=== PATIENT | male | born 1985 | race Caucasian/White ===

== ENCOUNTER → 2016-11-10 | Outpatient (CLI) | payer OTHER | LOC: M OUTALCOH 08:22 | PROVIDERS: ATTEND Psychiatry & Neurology Psychiatry | DX: F10.20 Alcohol dependence, uncomplicated (principal) ==

== ENCOUNTER → 2016-11-29 | Outpatient (RCR) | payer OTHER | END | disposition home or self-care (01) | LOC: M OUTALCOH 11-16 15:53 | PROVIDERS: ATTEND Psychiatry & Neurology Psychiatry | DX: F10.20 Alcohol dependence, uncomplicated (principal) ==

== ENCOUNTER → 2016-12-27 | Outpatient (RCR) | payer OTHER | LOC: M OUTALCOH 12-01 16:00 | PROVIDERS: ATTEND Psychiatry & Neurology Psychiatry | DX: F10.20 Alcohol dependence, uncomplicated (principal) ==

== ENCOUNTER 2017-01-26 16:00 | Outpatient (RCR) | payer OTHER | END 2017-01-27 | LOC: M OUTALCOH 16:00 | PROVIDERS: ATTEND Psychiatry & Neurology Psychiatry | DX: F10.20 Alcohol dependence, uncomplicated (principal) ==

== ENCOUNTER 2017-02-24 16:00 | Outpatient (RCR) | payer OTHER | END 2017-02-26 | LOC: M OUTALCOH 16:00 | PROVIDERS: ATTEND Psychiatry & Neurology Psychiatry | DX: F10.20 Alcohol dependence, uncomplicated (principal) ==

== ENCOUNTER 2017-03-13 16:00 | Outpatient (RCR) | payer OTHER | END 2017-03-29 | LOC: M OUTALCOH 16:00 | PROVIDERS: ATTEND Psychiatry & Neurology Psychiatry | DX: F11.20 Opioid dependence, uncomplicated (principal); F13.20 Sedative, hypnotic or anxiolytic dependence, uncomplicated; F17.201 Nicotine dependence, unspecified, in remission ==

== ENCOUNTER → 2017-12-20 | Outpatient (REF) | payer OTHER | LOC: M SMT 17:37 | DX: Z30.09 Encounter for other general counseling and advice on contraception (principal); Z30.2 Encounter for sterilization ==

== ENCOUNTER → 2019-06-14 | Outpatient (CLI) | payer BC ==
--- NOTE | 2019-06-14 17:24 | REP ---
CERVICAL SPINE COMPLETE: 06/14/2019. Clinical history: Neck pain. No recent trauma. Findings: Seven views for complete cervical spine series show normal lordosis maintained. Flexion and extension show slight decreased flexion range of motion but no instability. The C1-2 relationships are stable on all views. The disc space and vertebral body heights are intact. No prevertebral swelling. The foramina are adequate bilaterally. There is no torticollis. AP view shows pedicles, spinous and transverse processes intact. Open-mouth view shows dens and lateral masses aligning normally. Upper thoracic region and visualized ribs intact. Impression: 1. Very slight decreased range of motion that could reflect a small amount of muscle spasm but there is no instability, visible bony degenerative changes, malalignment, foraminal encroachment, compression deformity or other acute finding Electronically Signed by Jermaine Pedersen MD 06/14/2019 05:15 P
== END ==
LOC: M ADAMS 16:39
PROVIDERS: ATTEND Family Medicine
DX: M54.2 Cervicalgia (principal)

== ENCOUNTER 2020-06-12 19:24 | Emergency (ER) | payer BC ==
[2020-07-27 13:13] LABS: BASO # 0.1 10^3/uL (0.0-0.2); BASO % 1.1 % (0.0-1.0); EOS # 0.2 10^3/uL (0.0-0.5); HEMATOCRIT 41.1 % (42.0-52.0); HEMOGLOBIN 13.7 g/dl (13.5-17.5); LYMPH # 1.6 10^3/uL (1.5-5.0); LYMPH % 30.9 % (24.0-44.0); MEAN CORPUSCULAR HEMOGLOBIN 31.7 pg (27.0-33.0); MEAN CORPUSCULAR HGB CONC 33.3 g/dl (32.0-36.5); MEAN CORPUSCULAR VOLUME 95.1 fl (80.0-96.0); MONO # 0.5 10^3/uL (0.0-0.8); MONO % 9.6 % (0.0-5.0); NEUTROPHILS # 2.9 10^3/uL (1.5-8.5); NEUTROPHILS % 54.2 % (36.0-66.0); PLATELET COUNT, AUTOMATED 196 10^3/uL (150-450); RED BLOOD COUNT 4.32 10^6/uL (4.30-6.10); WHITE BLOOD COUNT 5.3 10^3/uL (4.0-10.0)
[2020-07-27 13:15] LABS: ERYTHROCYTE SEDIMENTATION RATE 3 mm/hr (0-15)
== END 2020-06-12 21:48 | disposition home or self-care (01) ==
LOC: M ED 19:24
DX: H57.12 Ocular pain, left eye (principal); X50.0XXA Overexertion from strenuous movement or load, initial encounter; Y92.89 Other specified places as the place of occurrence of the external cause; Y93.89 Activity, other specified; Y99.8 Other external cause status

== ENCOUNTER → 2023-06-28 | Outpatient (REF) | payer BC ==
[2023-06-28 13:26] LABS: HEMOGLOBIN 15.3 g/dl (13.5-17.5); MEAN CORPUSCULAR HEMOGLOBIN 30.7 pg (27.0-33.0); MEAN CORPUSCULAR HGB CONC 32.6 g/dl (32.0-36.5); MEAN CORPUSCULAR VOLUME 94.4 fl (80.0-96.0); PLATELET COUNT, AUTOMATED 237 10^3/uL (150-450); RED BLOOD COUNT 4.98 10^6/uL (4.30-6.10); WHITE BLOOD COUNT 5.3 10^3/uL (4.0-10.0)
[2023-06-28 13:49] LABS: ALBUMIN 4.3 G/DL (3.2-5.2); ALKALINE PHOSPHATASE 66 U/L (46-116); ALT/SGPT 23 U/L (7.0-40); AST/SGOT 12 U/L (<34); BILIRUBIN,TOTAL 0.5 MG/DL (0.3-1.2); BLOOD UREA NITROGEN 15 MG/DL (9-23); CALCIUM LEVEL 9.6 MG/DL (8.5-10.1); CARBON DIOXIDE LEVEL 31 MMOL/L (20-31); CHLORIDE LEVEL 105 MMOL/L (98-107); CHOLESTEROL LEVEL 215 MG/DL (<200); CHOLESTEROL RISK RATIO 4.47 (<5); CREATININE FOR GFR 0.94 MG/DL (0.70-1.30); GLOMERULAR FILTRATION RATE > 60.0 (>60); GLUCOSE, FASTING 92 MG/DL (60-100); LDL CHOLESTEROL 147.4 MG/DL (<100); POTASSIUM SERUM 4.5 MMOL/L (3.5-5.1); SODIUM LEVEL 140 MMOL/L (136-145); TOTAL PROTEIN 7.4 G/DL (5.7-8.2); TRIGLYCERIDES LEVEL 98 MG/DL (<150)
== END ==
LOC: M SFHCADAM 09:02
PROVIDERS: ATTEND Family Medicine
DX: M54.2 Cervicalgia (principal); E78.5 Hyperlipidemia, unspecified

== ENCOUNTER → 2023-07-19 | Outpatient (CLI) | payer BC | LOC: M PLAIMG 06:45 | PROVIDERS: ATTEND Chiropractor | DX: M99.03 Segmental and somatic dysfunction of lumbar region (principal); M54.41 Lumbago with sciatica, right side ==

== ENCOUNTER → 2024-07-02 | Outpatient (REF) | payer BC ==
[2024-07-02 18:16] LABS: HEMATOCRIT 44.7 % (42.0-52.0); HEMOGLOBIN 14.8 g/dl (13.5-17.5); MEAN CORPUSCULAR HGB CONC 33.1 g/dl (32.0-36.5); MEAN CORPUSCULAR VOLUME 96.5 fl (80.0-96.0); PLATELET COUNT, AUTOMATED 222 10^3/uL (150-450); RED BLOOD COUNT 4.63 10^6/uL (4.30-6.10)
[2024-07-02 18:45] LABS: ALKALINE PHOSPHATASE 66 U/L (46-116); ALT/SGPT 25 U/L (7.0-40); AST/SGOT 16 U/L (<34); BILIRUBIN,TOTAL 0.5 MG/DL (0.3-1.2); BLOOD UREA NITROGEN 14 MG/DL (9-23); CALCIUM LEVEL 9.3 MG/DL (8.5-10.1); CARBON DIOXIDE LEVEL 31 MMOL/L (20-31); CHLORIDE LEVEL 106 MMOL/L (98-107); CHOLESTEROL LEVEL 244 MG/DL (<200); CHOLESTEROL RISK RATIO 5.44 (<5); CREATININE FOR GFR 1.18 MG/DL (0.70-1.30); FREE T4 1.21 NG/DL (0.89-1.76); GLOMERULAR FILTRATION RATE > 60.0 (>60); GLUCOSE, FASTING 67 MG/DL (60-100); HDL CHOLESTEROL 44.8 MG/DL (>40); LDL CHOLESTEROL 173.6 MG/DL (<100); NON-HDL-C 199.2 MG/DL; POTASSIUM SERUM 4.8 MMOL/L (3.5-5.1); SODIUM LEVEL 140 MMOL/L (136-145); TOTAL PROTEIN 6.9 G/DL (5.7-8.2); TRIGLYCERIDES LEVEL 128 MG/DL (<150)
[2024-07-02 18:46] LABS: THYROID STIMULATING HORMONE 0.943 uIU/ML (0.55-4.78)
[2024-07-02 19:15] LABS: HEMOGLOBIN A1c 5.2 % (4.0-6.0)
== END ==
LOC: M SFHCADAM 13:51
PROVIDERS: ATTEND Family Medicine
DX: E78.5 Hyperlipidemia, unspecified (principal); I73.00 Raynaud's syndrome without gangrene; Z13.1 Encounter for screening for diabetes mellitus

== ENCOUNTER → 2025-03-04 | Outpatient (REF) | payer BC ==
[2025-03-04 14:46] LABS: CHOLESTEROL RISK RATIO 4.85 (<5); HDL CHOLESTEROL 53.8 MG/DL (>40); LDL CHOLESTEROL 185.8 MG/DL (<100); NON-HDL-C 207.2 MG/DL
== END ==
LOC: M LABWUC 13:52
PROVIDERS: ATTEND Family Medicine
DX: E78.5 Hyperlipidemia, unspecified (principal)

== ENCOUNTER → 2025-06-13 | Outpatient (CLI) | payer BC ==
[2025-06-13 11:41] LABS: ALT/SGPT 31 U/L (7.0-40); AST/SGOT 21 U/L (<34); CALCIUM LEVEL 9.7 MG/DL (8.5-10.1); CARBON DIOXIDE LEVEL 32 MMOL/L (20-31); CHLORIDE LEVEL 106 MMOL/L (98-107); CHOLESTEROL LEVEL 192 MG/DL (<200); CHOLESTEROL RISK RATIO 4.36 (<5); CREATININE FOR GFR 1.02 MG/DL (0.70-1.30); GLOMERULAR FILTRATION RATE > 90.0 (>60); LDL CHOLESTEROL 131.6 MG/DL (<100); NON-HDL-C 148.0 MG/DL; POTASSIUM SERUM 4.6 MMOL/L (3.5-5.1); SODIUM LEVEL 146 MMOL/L (136-145); TRIGLYCERIDES LEVEL 82 MG/DL (<150)
== END ==
LOC: M LAB 10:36
PROVIDERS: ATTEND Family Medicine
DX: E78.5 Hyperlipidemia, unspecified (principal)